=== PATIENT | male | born 1950 | race Caucasian/White ===

== ENCOUNTER 2023-12-30 09:18 | Outpatient (OUT) | payer MEDICARE, BC, SELFPAY ==
--- NOTE | 2023-12-30 09:20 | US_ITS ---
The [address] [address] Patient Name: LALA DAVIS MRN: [id number] date: 1950 Sex: M Assigned Patient Location: Current Patient Location: US Accession/Order Number: [id number] Exam Date: 12/30/2023 09:21 Report Date: 12/30/2023 12:21 At the request of: LANDRY PAIGE Procedure: US scrotum EXAMINATION: US scrotum HISTORY: Pain in testicle N50.819 COMPARISON: No relevant comparison available. TECHNIQUE: High-resolution sonographic imaging of the scrotum and contents was performed. FINDINGS: RIGHT: TESTICLE: Homogeneous echotexture. No visible mass. Color Doppler flow is present. Spectral Doppler demonstrates normal arterial waveform and flow, 4/2 cm/s (PSV/EDV). EPIDIDYMIS: 2 small cyst within head of epididymis. OTHER: None. LEFT: TESTICLE: Homogeneous echotexture. No visible mass. Color Doppler flow is present. Spectral Doppler demonstrates arterial waveform and flow, 5/3 cm/s (PSV/EDV), and normal venous flow averaging cm/s. EPIDIDYMIS: Normal size and echogenicity. OTHER: Prominent amount of free, simple appearing fluid within the left scrotum, 6.6 x 3.8 x 2.0 cm. US/US scrotum IMPRESSION: 1. Left hydrocele of uncertain etiology. No increased vascularity of the testicle or epididymis to suggest orchitis or epididymitis. 2. Unremarkable right testicle. Electronically authenticated by: LEWIS PHILIPPE Date: 12/30/2023 12:21
== END 2023-12-30 09:19 | disposition home or self-care (01) ==
LOC: US 09:18
PROVIDERS: PCP Family Medicine; Visit Provider Family Medicine
DX: N50.819 Testicular pain, unspecified (principal); N43.3 Hydrocele, unspecified
CPT/HCPCS: 76870

== ENCOUNTER 2024-01-04 09:54 | Outpatient (REF) | payer MEDICARE, BC, SELFPAY ==
--- OUTSIDE RECORDS SUMMARY | 2024-01-04 10:06 | XMS_ITS | CCD ---
Author Organization [facility] Care Team Providers Care Scientist Electronics Name Role Phone CARIE, COLE Unavailable Unavailable YUAN, CATRACHO Unavailable Unavailable CARIE, COLE Unavailable Unavailable YENNIFER SOSA Unavailable Unavailable RACHITSKAYA, NOEMY Unavailable Unavaila ble RACHITSKAYA, NOEMY Unavailable Unavaila ble RACHITSKAYA, NOEMY Unavailable Unavaila ble YUAN, CATRACHO Unavailable Unavailable RACHITSKAYA, NOEMY Unavailable Unavaila ble YUAN, CATRACHO Unavailable Unavailable YUAN, CATRACHO Unavailable Unavailable YUAN, CATRACHO Unavailable Unavailable YUAN, CATRACHO Unavailable Unavailable YUAN, CATRACHO Unavailable Unavailable YUAN, CATRACHO Unavailable Unavailable YUAN, CATRACHO Unavailable Unavailable YUAN, CATRACHO Unavailable Unavailable YUAN, CATRACHO Unavailable Unavailable YUAN, CATRACHO Unavailable Unavailable YUAN, CATRACHO Unavailable Unavailable Landry Paige Attending Unavailable Grecia, Landry Vilchis Primary Care Unavailable Calixto Smith II Unavailable Landry Paige Unavailable GRECIA, DR ALATORRE Consulting Unavailable GRECIA, DR ALATORRE Primary Care Unavailable GRECIA, DR ALATORRE Admitting Unavailable GRECIA, DR ALATORRE Attending Unavailable GRECIA, DR ALATORRE Admitting Unavailable GRECIA, DR ALATORRE Attending Unavailable GRECIA, DR ALATORRE Consulting Unavailable BROOKLYN, DR ALATORRE V Consulting Unavailable GRECIA, DR ALATORRE Primary Care Unavailable GRCEIA, DR ALATORRE Admitting Unavailable GRECIA, DR ALATORRE Attending Unavailable GRECIA, DR ALATORRE Consulting Unavailable Allergies Allergy Classification Reported Allergen(s) Allergy Type Date of Onset Reaction(s) Facility (16 sources) codeine; Translations: [CODEINE] Drug Allergy [facility] Repository (15 sources) atorvastatin Drug Allergy felt awful 09/03/16 [facility] Other Medications Current Medications Medication Drug Class(es) Dates Sig (Normalized) Sig (Original) diclofenac sodium 0.01 mg/mg topical gel (15 sources) Nonsteroidal Anti-inflammatory Drug Start: 01-27-2022 Voltaren 1 % Apply 1-2 grams to the affected area Externally 4-5 times a day for 30 days Jan, Active ginkgo biloba extract 120 mg oral capsule (15 sources) take 1 capsule by mouth once daily Ginkgo Biloba 120 MG 1 capsule Orally once a day Active glucosamine sulfate 1000 mg oral capsule (15 sources) take 1 capsule by mouth every twenty-four hours Glucosamine Sulfate 1000 MG 1 capsule Orally once a day for 30 day(s) Active take 1 capsule by mouth once lisa ly Glucosamine Sulfate 1000 MG 1 capsule Orally once a day for 30 day(s) Active lutein 20 mg oral tablet (15 sources) take 1 capsule by mouth once daily Lutein 20 MG 1 capsule with a meal Orally Once a day for 30 day(s) Active Manchurian Ginseng 250 MG (15 sources) take 2 capsules by mouth once daily Manchurian Ginseng 250 MG 2 capsules Orally once a day Active Naproxen (15 sources) Nonsteroidal Anti-inflammatory Drug Naproxen Active Tuscarora 3 1200 MG (15 sources) take 1 capsule by mouth three times daily [place]ora 3 1200 MG 1 capsule Orally Three times a day Active Saw [place] 1000 MG (15 sources) take 1 capsule by mouth once daily Saw [place] 1000 MG 1 capsule Orally once a day Active tadalafil 10 mg oral tablet (11 sources) Phosphodiesterase 5 Inhibitor Start: 04-06-20 Cialis 10 MG 1 tablet Orally 1 hour prior to onset of sexual activity max 1 per 36 hours Mar, Active Vitamin D 400 UNIT (15 sources) take 2 capsules by mouth once daily Vitamin D 400 UNIT 2 capsules Orally Once a day Active Vitamin E 400 UNIT (15 sources) take 1 capsule by mouth once daily Vitamin E 400 UNIT 1 capsule Orally Once a day for 30 day(s) Active Completed/Discontinued Medications Medication Drug Class(es) Dates Sig (Normalized) Sig (Original) amoxicillin 875 mg / clavulanate 125 mg oral tablet (4 sources) Penicillin-class Antibacterial Start: 10-11-2022 take 1 tablet by mouth twice daily at mealtime Amoxicillin-Pot Clavulanate 875-125 MG 1 tablet Orally bid with food for 10 days Oct, Not-Taking Co-Enzyme Q-10 100 MG (15 sources) Start: 11-24-2012 take 2 capsules by mouth once daily Co-Enzyme Q-10 100 MG 2 capsules w/meal Orally Once a day Nov, Not-Taking Start: 11-24-2012 take 2 capsules by m outh once daily Co-Enzyme Q-10 100 MG 2 capsules w/meal Orally Once a day Nov, Active meloxicam 7.5 mg oral tablet (7 sources) Nonsteroidal Anti-inflammatory Drug Start: 04-20-2022 take 1 tablet by mouth every twenty-four hours Meloxicam 7.5 MG 1 tablet Orally Once a day for 30 day(s) Apr, Not-Taking triamcinolone acetonide 40 mg/ml injectable suspension (2 sources) Corticosteroid Start: 11-05-2022 Kenalog-40 Oct, 120 mg Wheat germ oil (15 sources) Wheat Germ Oil Orally Not-Taking Wheat Germ Oil O rally Active Problems Active Problems Problem Classification Problem Date Documented Da te Episodic/Chronic Disorders of lipid metabolism (20 sources) Hyperlipidemia, unspecified; Translations: [Hyperlipidemia] Onset: 11-10-2018 Chronic Genitourinary symptoms and ill-defined conditions (9 sources) Nocturia; Translations: [NOCTURIA] Onset: 04-07-2022 Resolved: 04-13-2022 Episodic Nutritional deficiencies (15 sources) Vitamin D deficiency; Translations: [Vitamin D deficiency, unspecified] Chronic Open wounds of extremities (15 sources) Bilateral traumatic amputation of lower limbs; Translations: [Complete traumatic amputation of right lower leg, level unspecified, initial encounter] Chronic Open wounds of extremities (15 sources) Complete traumatic amputation at level between left hip and knee, subsequent encounter; Translations: [Complete traumatic amputation at level between left hip and knee, subsequent encounter] Chronic Osteoarthritis (20 sources) Osteoarthritis of knee; Translations: [Unilateral primary osteoarthritis, right knee] Onset: 01-13-2022 Resolved: 04-20-2022 Chronic Other bone disease and musculoskeletal deformities (15 sources) History of amputation of left lower limb; Translations: [Acquired absence of left leg above knee] Chronic Other connective tissue disease (15 sources) Finding of limb structure; Translations: [Presence of artificial left leg (complete) (partial)] Chronic Other connective tissue disease (1 source) Presence of artificial left leg (complete) (partial) Onset: 04-06-2022 Resolved: 04-06-2022 Chronic Other gastrointestinal disorders (4 sources) Irritable bowel syndrome; Translations: [Irritable bowel syndrome] Chronic Other gastrointestinal disorders (4 sources) Feces contents abnormal; Translations: [Change in stool] Episodic Other male genital disorders (12 sources) Male erectile dysfunction, unspecified; Translations: [Erectile dysfunction] Onset: 04-06-2022 Resolved: 04-06-2022 Chronic Other nutritional; endocrine; and metabolic disorders (4 sources) Weight loss; Translations: [Weight Loss] Episodic Other screening for suspected conditions (not mental disorders or infectious disease) (6 sources) Encounter for screening for malignant neoplasm of prostate; Translations: [Encounter for screening for malignant neoplasm of colon] Onset: 04-06-2022 Resolved: 04-06-2022 Episodic Other upper respiratory disease (4 sources) Allergic rhinitis; Translations: [Allergic rhinitis, cause unspecified] Chronic Unclassified (1 source) Unknown / UNK(Unknown) Onset: 02-17-2017 Unclassified (4 sources) Presence of left artificial leg; Translations: [Presence of left artificial leg] Past or Other Problems Problem Classification Problem Date Documented Da te Episodic/Chronic Other non-traumatic joint disorders (4 sources) Pain in right knee; Translations: [PAIN IN RIGHT KNEE] Onset: 01-06-2022 Episodic Retinal detachments; defects; vascular occlusion; and retinopathy (1 source) Serous retinal detachment, left eye; Translations: [Serous retinal detachment, left eye] Onset: 02-19-2017 Episodic Results Test Name Value Interpretation Reference Range Facility [facility] BLD IMMUNO SCREENon 09-0 OCCULT BLOOD Negative Normal NEGATIVE [facility] Comment on above: Performed By: #### OBSCRN #### [facility] [address] [address] [address] Anabel Dueñas XR knee RT 4V*on 01-27-2022 XR knee RT 4V* [place] [address] XRay Report Signed Patient: Lala Davis MR#: [id number] : 1950 Acct:[id number] Age/Sex: 71 / M ADM Date: 01/27/22 Loc: [facility] Room: Type: [facility] Attending Dr: Calixto Smith II, MD Copies to: Calixto Smith MD Ordering Provider: Calixto Smith MD Date of Service: 01/27/22 XR/XR knee RT 4V*: Primary osteoarthritis of right knee ([id number]) XR/XR pelvis 1-2V: Primary osteoarthritis of right knee Single view of the pelvis plain film HISTORY:RIGHT knee pain. COMPARISON:None SI joints are maintained. No hip fracture or dislocation is present. No acute bony findings identified. No focal soft tissue abnormality seen. LEFT hip joint space is narrowed. RIGHT hip joint space unremarkable.. Articular surface of the hips preserved. Chronic changes involving the proximal femur on the LEFT noted. XR/XR pelvis 1-2V IMPRESSION:LEFT hip degeneration. Chronic changes involving the proximal portion of the LEFT femoral shaft. Unremarkable RIGHT hip. 4 views, RIGHT knee Advanced medial compartment degeneration. Tricompartmental marginal spurring. No patellar subluxation with sunrise view. No acute bony findings. Mild degenerative subluxation. No soft tissue abnormality. No joint effusion. IMPRESSION: Advanced medial compartment knee degeneration. Impression dictated by: Magnus Motley M.D.01/27/2022 12:45 PM Dictation Location: [place] [address] Transcribed By: [facility] 01/27/22 1245 Dictated By: Magnus Motley DO 01/27/22 1242 Signed By: 01/27/22 1245 Normal [facility] XR knee RT 4V* [facility] [employer] Other XR knee RT 4V* [facility] [employer] Other XR knee RT 4V* [address] [place] [address] [facility] Other XR knee RT 4V* [place] [address] [facility] Other XR knee RT 4V* XRay Report [facility] Other XR knee RT 4V* Signed [facility] Other XR knee RT 4V* Patient: Lala Davis MR#: [id number] [facility] Other XR knee RT 4V* : 1950 Acct:[id number] [facility] Other XR knee RT 4V* Age/Sex: 71 / M ADM Date: 01/27/22 [facility] Other XR knee RT 4V* Loc: [facility] Room: Type: REG CLI No rt [employer] Other XR knee RT 4V* Attending Dr: Calixto Smith II, MD [facility] Other XR knee RT 4V* Copies to: Calixto Smith MD [facility] Other XR knee RT 4V* Ordering Provider: Calixto Smith MD [facility] Other XR knee RT 4V* Date of Service: 01/27/22 [facility] Other XR knee RT 4V* XR/XR knee RT 4V*: Primary osteoarthritis of right knee [facility] Other XR knee RT 4V* ([id number]) XR/XR pelvis 1-2V: Primary osteoarthritis of right knee [facility] Other XR knee RT 4V* Single view of the pelvis plain film [facility] Other XR knee RT 4V* HISTORY:RIGHT knee pain. [employer] Other XR knee RT 4V* COMPARISON:None [facility] Other XR knee RT 4V* SI joints are maintained. [facility] Other XR knee RT 4V* No hip fracture or dislocation is present. [facility] Other XR knee RT 4V* No acute bony findings identified. [facility] Other XR knee RT 4V* No focal soft tissue abnormality seen. [facility] Other XR knee RT 4V* LEFT hip joint space is narrowed. RIGHT hip joint space unremarkable.. Articular surface of the [facility] Other XR knee RT 4V* hips preserved. Chronic changes involving the proximal femur on the LEFT noted. [facility] Other XR knee RT 4V* XR/XR pelvis 1-2V [facility] Other XR knee RT 4V* IMPRESSION:LEFT hip degeneration. Chronic changes involving the proximal portion of the LEFT femoral [facility] Other XR knee RT 4V* shaft. Unremarkable RIGHT hip. [employer] Other XR knee RT 4V* 4 views, RIGHT knee [facility] Other XR knee RT 4V* Advanced medial compartment degeneration. Tricompartmental marginal spurring. No patellar [employer] Other XR knee RT 4V* subluxation with sunrise view. No acute bony findings. Mild degenerative subluxation. No soft tissue [employer] Other XR knee RT 4V* abnormality. No joint effusion. [employer] Other XR knee RT 4V* IMPRESSION: Advanced medial compartment knee degeneration. [employer] Other XR knee RT 4V* Impression dictated by: Magnus Motley M.D.01/27/2022 12:45 PM [employer] Other XR knee RT 4V* Dictation Location: [place] [address] [facility] Other XR knee RT 4V* Transcribed By: ROBERTO 01/27/22 1245 [employer] Other XR knee RT 4V* Dictated By: Magnus Motley DO 01/27/22 1242 [facility] Other XR knee RT 4V* Signed By: [facility] Other XR knee RT 4V* 01/27/22 [address] [facility] [address] CARDIAC SCORINGon 04-0 CT CARDIAC SCORING Patient Name: LALA DAVIS STUDY: CT CARDIAC SCORING; 11/10/2018 3:11 pm INDICATION: Hyperlipidemia, unspecified. COMPARISON: None. ACCESSION NUMBER(S): [id number] ORDERING CLINICIAN: LANDRY PAIGE TECHNIQUE: Using prospective ECG gating, CT scan of the coronary arteries was performed without intravenous contrast. Coronary calcium scoring was performed according to the method of Agatston. FINDINGS: The score and distribution of calcium in the coronary arteries is as follows: LM 0, LAD 0, LCx 0, RCA 0, Total 0 The visualized mid/lower ascending thoracic aorta measures 3.0 cm in diameter. The heart is normal in size. No pericardial effusion is present. No gross evidence of mediastinal or hilar lymphadenopathy or masses is identified. The visualized segments of the lungs are normally expanded. The visualized subdiaphragmatic structures appear intact. IMPRESSION: 1. Coronary artery calcium score of 0*. *Coronary Artery Calcium Gated and Nongated Agatston score Score Risk 0 Very low 1-99 Mildly increased 100-299 Moderately increased >300 Moderate to severely increased Candace et al. JCCT 2016 (http://dx.doi.org/10.1016/j.jcc t.2016.11.003) MORALES 10-Year CHD Risk with Coronary Artery Calcification can be calcuate using link below [email or web address] spx Yohannes et al. JACC 2014 (http://dx.doi.org/10.1016/j.j acc.2015.08.035) Electronically signed by: ONEL PIPER MD Normal [facility] PROGRESSon 11-18-2017 PROGRESS HNO ID: [id number] thor: Catracho Soni: (none)Author Type: PhysicianType: Progress NotesFiled: 11/18/2017 11:47 AMNote Text:Recent subtotal retinal detachment of left eyeCystoid macular edema of left eyeLeft posterior capsular opacificationS/p Pars plana vitrectomy (PPV) left eye with Dr. Villarreal (02/19/17)Great response to Predforte /acular with almost complete resolution ofcystoid macular edemaPreviously with cystoid macular edema after tapering off medsHas a posterior capsular opacity (PCO), vision 20/25Plan:intraocular pressure creeping upTaper Predforte Slowly to twice a dayAdd timolol twice a Julisa am out in January, see Dr. Summers or Dr. King in January then [facility] to [facility] reviewed history and examined the patient. I agree with findings,impressions, and plan.The nature of the patient's eye disease, its relationship to systemichealth, its genetic components, and its prognosis have been explained tothe patient/family.The treatment options/risks/benefits have been discussed.Questions answered.Catracho Quesada MD [facility] PROGRESSon 10-14-2017 PROGRESS HNO ID: [id number] thor: Catracho Soni: (none)Author Type: PhysicianType: Progress NotesFiled: 10/14/2017 10:24 AMNote Text:Recent subtotal retinal detachment of left eyeCystoid macular edema of left eyeLeft posterior capsular opacificationS/p Pars plana vitrectomy (PPV) left eye with Dr. Villarreal (02/19/17)Great response to Predforte /acular with almost complete resolution ofcystoid macular edemacystoid macular edema once off Predforte /acular will need slow taperHas a PCOPlan:Predforte Three times a day , return 1 Maddy reviewed history and examined the patient. I agree with findings,impressions, and plan.The nature of the patient's eye disease, its relationship to systemichealth, its genetic components, and its prognosis have been explained tothe patient/family.The treatment options/risks/benefits have been discussed.Questions answered.Catracho Quesada MD [facility] PROGRESSon 09-16-2017 PROGRESS HNO ID: [id number] thor: Catracho Soni: (none)Author Type: PhysicianType: Progress NotesFiled: 09/16/2017 12:18 PMNote Text:Recent subtotal retinal detachment of left eyeCystoid macular edema of left eye (primary encounter diagnosis)Left posterior capsular opacificationS/p Pars plana vitrectomy (PPV) left eye with Dr. Villarreal (02/19/17)Great response to Predforte /acular with almost complete resolution ofcystoid macular edemaBut now with cystoid macular edema once off Predforte /acularPlan:Restart Predforte four times a day , return 1 Maddy reviewed history and examined the patient. I agree with findings,impressions, and plan.The nature of the patient's eye disease, its relationship to systemichealth, its genetic components, and its prognosis have been explained tothe patient/family.The treatment options/risks/benefits have been discussed.Questions answered.Catracho Quesada MD [facility] 06-17-2017 HOSP Office Visit OPHT (OPHTLN) LARS DAVIS ([id number]) 1950 MDate Time Provider Grqukfhtuu05/10/17 2:15 PM CATRACHO QUESADA During your visit today, we recorded the following information about you:Catracho Quesada MD PHD 06/17/2017 3:01 PM SignedRecent subtotal retinal detachment of left eyeCystoid macular edema of left eyeS/p Pars plana vitrectomy (PPV) left eye with Dr. Villarreal (02/19/17)Great response to Predforte /acular with almost complete resolution of cystoidmacular edemaTaper off PFMonitor IOPI reviewed history and examined the patient. I agree with findings,impressions, and plan.The nature of the patient's eye disease, its relationship to systemic health,its genetic components, and its prognosis have been explained to thepatient/family.The treatment options/risks/benefits have been discussed.Questions answered.Catracho Quesada MDReferring Provider: CATRACHO QUESADA [[id number]]Allergies As of Date: 06/17/2017 Noted Allergy ReactionCODEINE 10/12/2016 5 - IntoleranceDate Reviewed: 06/17/2017Reviewed by: Catracho Quesada - Fully AssessedReason for Visit: Cystoid Macular Edema Follow Up [3589]Visit Diagnoses:Recent subtotal retinal detachment of left eye [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 [H35.352]Order(s):DILATED FUNDUS EXAM [] Order #: [id number]: 1 IOP MEASUREMENT [] Order #: [id number]: 1 OCT MACULA CIRRUS OS (LEFT EYE) [21291210] Order #: [id number]: 1 DILATED FUNDUS EXAM [] Order #: [id number]: 1 FUTURE IOP MEASUREMENT [] Order #: [id number]: 1 FUTURE OCT MACULA CIRRUS OS (LEFT EYE) [21291210] Order #: [id number]: 1 FUTUREPrescriptions as of 06/17/2017 Sig: PREDNISOLONE ACETATE 1 % EYE * Use 1 Drop in the left eye fo* PREDNISOLONE ACETATE 1 % EYE * Use 1 Drop in the left eye th* KETOROLAC 0.5 % EYE DROPS Use 1 Drop in the left eye th* KETOROLAC 0.5 % EYE DROPS Use 1 Drop in the left eye fo* GINSENG 250 MG CAPSULE Take by mouth. COENZYME Q10 100 MG TABLET Take by mouth. MAGNESIUM (OXIDE/AA CHELATE) * Take by mouth. CALCIUM 300 ORAL Take by mouth. OMEGA 3 FISH OIL ORAL Take by mouth. VITAMIN E (DL, ACETATE) 400 U* Take 400 Units by mouth once * GLUCOSAMINE SULFATE 500 MG TA* Take 1 tablet by mouth. MULTI FOR HIM ORAL Take by mouth. MELOXICAM ORAL Take by mouth.Problem List As Of Date 06/17/2017 Noted Resolved Age-related nuclear cataract of both eyes [H25.*INVALID FOR* Cataract, nuclear sclerotic senile [H25.10] INVALID FOR* Nuclear sclerotic cataract of left eye [H25.12] INVALID FOR* S/P cataract extraction and insertion of intrao*INVALID FOR* PVD (posterior vitreous detachment), both eyes *INVALID FOR* After-cataract obscuring vision [H26.499] INVALID FOR*Annotated image of OPHT KEITH FUNDUS PERIPHERY OS last updated by Catracho Quesada on 06/17/2017 2:52 PMEncounter Number: [id number] Status:Closed by SHIN PONCE, CATRACHO PHD on 06/17/17 [facility] PROGRESSon 06-17-2017 PROGRESS HNO ID: [id number] thor: Catracho Soni: (none)Author Type: PhysicianType: Progress NotesFiled: 06/17/2017 3:01 PMNote Text:Recent subtotal retinal detachment of left eyeCystoid macular edema of left eyeS/p Pars plana vitrectomy (PPV) left eye with Dr. Villarreal (02/19/17)Great response to Predforte /acular with almost complete resolution ofcystoid macular edemaTaper off PFMonitor IOPI reviewed history and examined the patient. I agree with findings,impressions, and plan.The nature of the patient's eye disease, its relationship to systemichealth, its genetic components, and its prognosis have been explained tothe patient/family.The treatment options/risks/benefits have been discussed.Questions answered.Catracho Quesada MD [facility] 05-20-2017 HOSP Office Visit OPHT (OPHTLN) [facility]ARS DAVIS [facility][id number][facility] 1950 [facility] Ebapcergux09/13/17 9:45 AM CATRACHO QUESADA During your visit today, we recorded the following information about you:Catracho Quesada MD PHD 05/20/2017 10:40 AM SignedRecent subtotal retinal detachment of left eyeCystoid macular edema of left eyeS/p Pars plana vitrectomy (PPV) left eye with Dr. Villarreal (02/19/17)Great response to Predforte /acular with almost complete resolution of cystoidmacular edemaintraocular pressure high todayTaper to three times a day x 1 week, then twice a day x 1 weekMonitor IOPI reviewed history and examined the patient. I agree with findings,impressions, and plan.The nature of the patient's eye disease, its relationship to systemic health,its genetic components, and its prognosis have been explained to thepatient/family.The treatment options/risks/benefits have been discussed.Questions answered.Catracho Quesada [facility] Provider: CATRACHO QUESADA [[id number]]Allergies As of Date: 05/20/2017 Noted Allergy ReactionCODEINE 10/12/2016 5 - IntoleranceDate Reviewed: 05/20/2017Reviewed by: Tova TenorioOpt-ADolly Barksdale - Fully AssessedReason for Visit: Cystoid Macular Edema Follow Up [3589]Visit Diagnoses:Recent subtotal retinal detachment of left eye [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 [H35.352]Order(s):DILATED FUNDUS EXAM [] Order #: [id number]: 1 IOP MEASUREMENT [] Order #: [id number]: 1 OCT MACULA CIRRUS OS (LEFT EYE) [21291210] Order #: [id number]: 1 prednisoLONE acetate (PRED FORTE, ECONOPRED PLUS) 1 % ophthalmic suspensionUse 1 Drop in the left eye three times daily.Disp: 1 BottleRfl: 2 ketorolac (ACULAR) 0.5 % ophthalmic solutionUse 1 Drop in the left eye three times daily.Disp: 1 BottleRfl: 2 DILATED FUNDUS EXAM [] Order #: [id number]: 1 FUTURE IOP MEASUREMENT [] Order #: [id number]: 1 FUTURE OCT MACULA CIRRUS OS (LEFT EYE) [21291210] Order #: [id number]: 1 FUTUREPrescriptions as of 05/20/2017 Sig: PREDNISOLONE ACETATE 1 % EYE * Use 1 Drop in the left eye fo* PREDNISOLONE ACETATE 1 % EYE * Use 1 Drop in the left eye th* KETOROLAC 0.5 % EYE DROPS Use 1 Drop in the left eye th* KETOROLAC 0.5 % EYE DROPS Use 1 Drop in the left eye fo* GINSENG 250 MG CAPSULE Take by mouth. COENZYME Q10 100 MG TABLET Take by mouth. MAGNESIUM (OXIDE/AA CHELATE) * Take by mouth. CALCIUM 300 ORAL Take by mouth. OMEGA 3 FISH OIL ORAL Take by mouth. VITAMIN E (DL, ACETATE) 400 U* Take 400 Units by mouth once * GLUCOSAMINE SULFATE 500 MG TA* Take 1 tablet by mouth. MULTI FOR HIM ORAL Take by mouth. MELOXICAM ORAL Take by mouth.Problem List As Of Date 05/20/2017 Noted Resolved Age-related nuclear cataract of both eyes [H25.*INVALID FOR* Cataract, nuclear sclerotic senile [H25.10] INVALID FOR* Nuclear sclerotic cataract of left eye [H25.12] INVALID FOR* S/P cataract extraction and insertion of intrao*INVALID FOR* PVD (posterior vitreous detachment), both eyes *INVALID FOR* After-cataract obscuring vision [H26.499] INVALID FOR*Prescriptions ordered this encounter Disp Refills Start End PREDNISOLONE ACETATE 1 % EYE DROPS,S* 1 Jarad* 2 05/20/2017 Class: Print RX Route: LEFT EYE Sig: Use 1 Drop in the left eye three times daily. KETOROLAC 0.5 % EYE DROPS 1 Jarad* 2 05/20/2017 Class: Print RX Route: LEFT EYE Sig: Use 1 Drop in the left eye three times daily.Disposition: Return in 4 weeks (on 06/17/2017).Follow-up and Disposition History RecordedAnnotated image of OPHT KEITH FUNDUS PERIPHERY OS last updated by Catracho Quesada on 05/20/2017 10:23 AMEncounter Number: [id number] Status:Closed by SHIN PONCE, CATRACHO PHD on 05/20/17 [facility] PROGRESSon 05-20-2017 PROGRESS HNO ID: [id number] thor: Catracho Soni: (none)Author Type: PhysicianType: Progress NotesFiled: 05/20/2017 10:40 AMNote Text:Recent subtotal retinal detachment of left eyeCystoid macular edema of left eyeS/p Pars plana vitrectomy (PPV) left eye with Dr. Villarreal (02/19/17)Great response to Predforte /acular with almost complete resolution ofcystoid macular edemaintraocular pressure high todayTaper to three times a day x 1 week, then twice a day x 1 weekMonitor IOPI reviewed history and examined the patient. I agree with findings,impressions, and plan.The nature of the patient's eye disease, its relationship to systemichealth, its genetic components, and its prognosis have been explained tothe patient/family.The treatment options/risks/benefits have been discussed.Questions answered.Catracho Quesada MD [facility] HOSPon 04-15-2017 HOSP Office Visit OPHT (OPHTLN) LARS DAVIS ([id number]) 1950 MDate Time Provider Department04/15/17 10:15 AM CATRACHO QUESADA During your visit today, we recorded the following information about you:Catracho Quesada MD PHD 04/15/2017 10:58 AM SignedRecent subtotal retinal detachment of left eyeCystoid macular edema of left eye (primary encounter diagnosis)S/p Pars plana vitrectomy (PPV) left eye with Dr. Villarreal (02/19/17)Retina attached but worsening cystoid macular edema left eye with SRFRestart Predforte And add acular four times a day OSI reviewed history and examined the patient. I agree with findings,impressions, and plan.The nature of the patient's eye disease, its relationship to systemic health,its genetic components, and its prognosis have been explained to thepatient/family.The treatment options/risks/benefits have been discussed.Questions answered.Catracho Quesada MDReferring Provider: CATRACHO QUESADA [[id number]]Allergies As of Date: 04/15/2017 Noted Allergy ReactionCODEINE 10/12/2016 5 - IntoleranceDate Reviewed: 04/15/2017Reviewed by: Catracho Quesada - Fully AssessedReason for Visit: Recent subtotal retinal detachment [Other] Cmt: Left EyePrimary Visit Diagnosis:Cystoid macular edema of left eye [H35.352] Other Visit Diagnosis:Recent subtotal retinal detachment of left eye [H33.052]Order(s):DILATED FUNDUS EXAM [] Order #: [id number]: 1 IOP MEASUREMENT [] Order #: [id number]: 1 OCT MACULA CIRRUS OS (LEFT EYE) [21291210] Order #: [id number]: 1 ketorolac (ACULAR) 0.5 % ophthalmic solutionUse 1 Drop in the left eye four times daily.Disp: 1 BottleRfl: 1 DILATED FUNDUS EXAM [] Order #: [id number]: 1 FUTURE IOP MEASUREMENT [] Order #: [id number]: 1 FUTURE OCT MACULA CIRRUS OS (LEFT EYE) [0763314] Order #: [id number]: 1 FUTUREPrescriptions as of 04/15/2017 Sig: GINSENG 250 MG CAPSULE Take by mouth. COENZYME Q10 100 MG TABLET Take by mouth. MAGNESIUM (OXIDE/AA CHELATE) * Take by mouth. CALCIUM 300 ORAL Take by mouth. OMEGA 3 FISH OIL ORAL Take by mouth. VITAMIN E (DL, ACETATE) 400 U* Take 400 Units by mouth once * GLUCOSAMINE SULFATE 500 MG TA* Take 1 tablet by mouth. MULTI FOR HIM ORAL Take by mouth. MELOXICAM ORAL Take by mouth. KETOROLAC 0.5 % EYE DROPS Use 1 Drop in the left eye fo*Problem List As Of Date 04/15/2017 Noted Resolved Age-related nuclear cataract of both eyes [H25.*INVALID FOR* Cataract, nuclear sclerotic senile [H25.10] INVALID FOR* Nuclear sclerotic cataract of left eye [H25.12] INVALID FOR* S/P cataract extraction and insertion of intrao*INVALID FOR* PVD (posterior vitreous detachment), both eyes *INVALID FOR* After-cataract obscuring vision [H26.499] INVALID FOR*Prescriptions ordered this encounter Disp Refills Start End KETOROLAC 0.5 % EYE DROPS 1 Jarad* 1 04/15/2017 Route: LEFT EYE Sig: Use 1 Drop in the left eye four times daily.Medications Discontinued During This Encounter erythromycin ophthalmic ointment 0 02/19/2017 04/15/2017 Class: Med Update Route: LEFT EYE Sig: Use 1 application in the left eye daily at bedtime. Apply 1/2 inch ribbon per application Disc: Discontinued by Patient erythromycin ophthalmic ointment 1 Tu* 0 03/04/2017 04/15/2017 Route: LEFT EYE Sig: Use 1 application in the left eye daily at bedtime. Disc: Discontinued by Patient prednisoLONE acetate (PRED FORTE, EC* 0 02/19/2017 04/15/2017 Class: Med Update Route: LEFT EYE Sig: Use 1 Drop in the left eye four times daily. Disc: Course of therapy completed prednisoLONE acetate (PRED FORTE, EC* 1 Jarad* 0 03/12/2017 04/15/2017 Route: LEFT EYE Sig: Use 1 Drop in the left eye once daily. Follow taper directions from your physician. Disc: Course of therapy completed ciprofloxacin HCl (CILOXAN) 0.3 % op* 0 02/19/2017 04/15/2017 Class: Med Update Route: LEFT EYE Sig: Use 1 Drop in the left eye four times daily. Disc: Course of therapy completedDisposition: Return in 4 weeks (on 05/13/2017), or if symptoms worsen or fail to improve.Follow-up and Disposition History RecordedAnnotated image of OPHT KEITH FUNDUS PERIPHERY OS last updated by Catracho Quesada on 04/15/2017 10:47 AMEncounter Number: [id number] Status:Closed by CATRACHO QUESADA MD PHD on 04/15/17 [facility] PROGRESSon 04-15-2017 PROGRESS HNO ID: [id number] thor: Catracho Soni: (none)Author Type: PhysicianType: Progress NotesFiled: 04/15/2017 10:58 AMNote Text:Recent subtotal retinal detachment of left eyeCystoid macular edema of left eye (primary encounter diagnosis)S/p Pars plana vitrectomy (PPV) left eye with Dr. Villarreal (02/19/17)Retina attached but worsening cystoid macular edema left eye with SRFRestart Predforte And add acular four times a day OSI reviewed history and examined the patient. I agree with findings,impressions, and plan.The nature of the patient's eye disease, its relationship to systemichealth, its genetic components, and its prognosis have been explained tothe patient/family.The treatment options/risks/benefits have been discussed.Questions answered.Catracho Quesada MD [facility] HOSPon 03-18-2017 HOSP Office Visit OPHT (OPHTLN) LARS DAVIS ([id number]) 1950 MDate Time Provider Department03/18/17 10:45 AM CATRACHO QUESADA During your visit today, we recorded the following information about you:Catracho Quesada MD PHD 03/18/2017 12:31 PM SignedRecent subtotal retinal detachment of left eye (primary encounter diagnosis)Pco (posterior capsular opacification), leftS/p Pars plana vitrectomy (PPV) left eye with Dr. Vlilarreal (02/19/17)Retina attachedTaper off PredforteContinue ointment at night and aggressive lubricationRefraction next visit pleaseI reviewed history and examined the patient. I agree with findings,impressions, and plan.The nature of the patient's eye disease, its relationship to systemic health,its genetic components, and its prognosis have been explained to thepatient/family.The treatment options/risks/benefits have been discussed.Questions answered.Catracho Quesada MDReferring Provider: NOEMY VILLARREAL V [[id number]]Allergies As of Date: 03/18/2017 Noted Allergy ReactionCODEINE 10/12/2016 5 - IntoleranceDate Reviewed: 03/18/2017Reviewed by: Luisito Segundo (Oa) - Fully AssessedReason for Visit: Rhegmatogenous Retinal Detachment Follow Up [3420]Primary Visit Diagnosis:Recent subtotal retinal detachment of left eye [H33.052] Other Visit Diagnosis:PCO (posterior capsular opacification), left [H26.492]Order(s):DILATED FUNDUS EXAM [] Order #: [id number]: 1 FUTURE IOP MEASUREMENT [] Order #: [id number]: 1 FUTURE DILATED FUNDUS EXAM [] Order #: [id number]: 1 IOP MEASUREMENT [] Order #: [id number]: 1 DILATED FUNDUS EXAM [] Order #: [id number]: 1 FUTURE IOP MEASUREMENT [] Order #: [id number]: 1 FUTURE OCT MACULA CIRRUS OS (LEFT EYE) [21291210] Order #: [id number]: 1 FUTUREPrescriptions as of 03/18/2017 Sig: PREDNISOLONE ACETATE 1 % EYE * Use 1 Drop in the left eye on* ERYTHROMYCIN 5 MG/GRAM (0.5 %* Use 1 application in the left* ERYTHROMYCIN 5 MG/GRAM (0.5 %* Use 1 application in the left* GINSENG 250 MG CAPSULE Take by mouth. COENZYME Q10 100 MG TABLET Take by mouth. MAGNESIUM (OXIDE/AA CHELATE) * Take by mouth. CALCIUM 300 ORAL Take by mouth. OMEGA 3 FISH OIL ORAL Take by mouth. VITAMIN E (DL, ACETATE) 400 U* Take 400 Units by mouth once * GLUCOSAMINE SULFATE 500 MG TA* Take 1 tablet by mouth. MULTI FOR HIM ORAL Take by mouth. MELOXICAM ORAL Take by mouth. CIPROFLOXACIN 0.3 % EYE DROPS Use 1 Drop in the left eye fo* PREDNISOLONE ACETATE 1 % EYE * Use 1 Drop in the left eye fo*Problem List As Of Date 03/18/2017 Noted Resolved Age-related nuclear cataract of both eyes [H25.*INVALID FOR* Cataract, nuclear sclerotic senile [H25.10] INVALID FOR* Nuclear sclerotic cataract of left eye [H25.12] INVALID FOR* S/P cataract extraction and insertion of intrao*INVALID FOR* PVD (posterior vitreous detachment), both eyes *INVALID FOR* After-cataract obscuring vision [H26.499] INVALID FOR*Disposition: Return in 4 weeks (on 04/15/2017).Follow-up and Disposition History RecordedAnnotated image of OPHT KEITH FUNDUS PERIPHERY OS last updated by Catracho Quesada on 03/18/2017 12:24 PMEncounter Number: [id number] Status:Closed by SHIN PONCE, CATRACHO PHD on 03/18/17 [facility] PROGRESSon 03-18-2017 PROGRESS HNO ID: [id number] thor: Catracho Soni: (none)Author Type: PhysicianType: Progress NotesFiled: 03/18/2017 12:31 PMNote Text:Recent subtotal retinal detachment of left eye (primary encounterdiagnosis)Pco (posterior capsular opacification), leftS/p Pars plana vitrectomy (PPV) left eye with Dr. Villarreal (02/19/17)Retina attachedTaper off PredforteContinue ointment at night and aggressive lubricationRefraction next visit pleaseI reviewed history and examined the patient. I agree with findings,impressions, and plan.The nature of the patient's eye disease, its relationship to systemichealth, its genetic components, and its prognosis have been explained tothe patient/family.The treatment options/risks/benefits have been discussed.Questions answered.Catracho Quesada MD [facility] OBSOLETEon 03-12-2017 OBSOLETE Refill (OPHTMN) LARS DAVIS ([id number]) 1950 MDate Time Provider Department03/12/17 CALIXTO HANNAH (RES) OPHHUBERN During your visit today, we recorded the following information about you:Calixto Hannah MD, PhD 03/12/2017 10:33 AM SignedAsked for refill of prednisolone. Will refill one bottle. Counseled to followtaper directions given at last office visit.Allergies As of Date: 03/12/2017 Noted Allergy ReactionCODEINE 10/12/2016 5 - IntoleranceDate Reviewed: 02/25/2017Reviewed by: Santy Caputo Fully AssessedReason for Visit: Refill Request [94]Order(s):prednisoLONE acetate (PRED FORTE, ECONOPRED PLUS) 1 % ophthalmic suspensionUse 1 Drop in the left eye once daily. Follow taper directions from your physician.Disp: 1 BottleRfl: 0Prescriptions as of 03/12/2017 Sig: PREDNISOLONE ACETATE 1 % EYE * Use 1 Drop in the left eye on* ERYTHROMYCIN 5 MG/GRAM (0.5 %* Use 1 application in the left* CIPROFLOXACIN 0.3 % EYE DROPS Use 1 Drop in the left eye fo* ERYTHROMYCIN 5 MG/GRAM (0.5 %* Use 1 application in the left* PREDNISOLONE ACETATE 1 % EYE * Use 1 Drop in the left eye fo* GINSENG 250 MG CAPSULE Take by mouth. COENZYME Q10 100 MG TABLET Take by mouth. MAGNESIUM (OXIDE/AA CHELATE) * Take by mouth. CALCIUM 300 ORAL Take by mouth. OMEGA 3 FISH OIL ORAL Take by mouth. VITAMIN E (DL, ACETATE) 400 U* Take 400 Units by mouth once * GLUCOSAMINE SULFATE 500 MG TA* Take 1 tablet by mouth. MULTI FOR HIM ORAL Take by mouth. MELOXICAM ORAL Take by mouth.Problem List As Of Date 03/12/2017 Noted Resolved Age-related nuclear cataract of both eyes [H25.*INVALID FOR* Cataract, nuclear sclerotic senile [H25.10] INVALID FOR* Nuclear sclerotic cataract of left eye [H25.12] INVALID FOR* S/P cataract extraction and insertion of intrao*INVALID FOR* PVD (posterior vitreous detachment), both eyes *INVALID FOR* After-cataract obscuring vision [H26.499] INVALID FOR*Prescriptions ordered this encounter Disp Refills Start End PREDNISOLONE ACETATE 1 % EYE DROPS,S* 1 Jarad* 0 03/12/2017 Route: LEFT EYE Sig: Use 1 Drop in the left eye once daily. Follow taper directions from your physician. Status:Closed by CALIXTO HANNAH on 03/12/17 [facility] OBSOLETEon 03-04-2017 OBSOLETE Refill (OPHTMN) LARS DAVIS ([id number]) 1950 MDate Time Provider Department03/04/17 NOEMY VILLARREAL During your visit today, we recorded the following information about you:Allergies As of Date: 03/04/2017 Noted Allergy ReactionCODEINE 10/12/2016 5 - IntoleranceDate Reviewed: 02/25/2017Reviewed by: Santy Caputo Fully AssessedReason for Visit: Refill Request [94]Order(s):erythromycin ophthalmic ointmentUse 1 application in the left eye daily at bedtime.Disp: 1 TubeRfl: 0Prescriptions as of 03/04/2017 Sig: ERYTHROMYCIN 5 MG/GRAM (0.5 %* Use 1 application in the left* CIPROFLOXACIN 0.3 % EYE DROPS Use 1 Drop in the left eye fo* ERYTHROMYCIN 5 MG/GRAM (0.5 %* Use 1 application in the left* PREDNISOLONE ACETATE 1 % EYE * Use 1 Drop in the left eye fo* GINSENG 250 MG CAPSULE Take by mouth. COENZYME Q10 100 MG TABLET Take by mouth. MAGNESIUM (OXIDE/AA CHELATE) * Take by mouth. CALCIUM 300 ORAL Take by mouth. OMEGA 3 FISH OIL ORAL Take by mouth. VITAMIN E (DL, ACETATE) 400 U* Take 400 Units by mouth once * GLUCOSAMINE SULFATE 500 MG TA* Take 1 tablet by mouth. MULTI FOR HIM ORAL Take by mouth. MELOXICAM ORAL Take by mouth.Problem List As Of Date 03/04/2017 Noted Resolved Age-related nuclear cataract of both eyes [H25.*INVALID FOR* Cataract, nuclear sclerotic senile [H25.10] INVALID FOR* Nuclear sclerotic cataract of left eye [H25.12] INVALID FOR* S/P cataract extraction and insertion of intrao*INVALID FOR* PVD (posterior vitreous detachment), both eyes *INVALID FOR* After-cataract obscuring vision [H26.499] INVALID FOR*Prescriptions ordered this encounter Disp Refills Start End ERYTHROMYCIN 5 MG/GRAM (0.5 %) EYE O* 1 Tu* 0 03/04/2017 Route: LEFT EYE Sig: Use 1 application in the left eye daily at bedtime. Status:Closed by PHIL PONCE, NOEMY [place] on 03/04/17 [facility] HOSP 02-25-2017 HOSP Office Visit OPHT (OPHTMN) LARS DAVIS ([id number]) 1950 MDate Time Provider Department02/25/17 11:00 AM NOEMY VILLARREAL V OPHTMN During your visit today, we recorded the following information about you:Noemy Villarreal MD 02/25/2017 11:50 AM SignedRhegmatogenous retinal detachment, left eye-pow 1 s/p PPV/EL/20%SF6 02/19/17- Doing well, retina attached, no fluid - Post operative drops, instructions, and positioning right side down reviewed- start PF taper 3-2-1 weekly taper; d/c cipro; d/c cycloPseudophakia both eyes - stable, observeI have confirmed and edited as necessary the relevant ophthalmic history, ROS,and the neuro exam findings as obtained by others. I have seen and examinedLala Davis.I have discussed the case and the management of this patient's care with theResident/Fellow, if applicable. I also have reviewed and agree with theassessment and plan as stated above and agree with all of its relevantcomponents.Lili Caputo MD 02/25/2017 11:48 AM Addendum02/20/2017Your instructions/restrictions until Dr. Villarreal sees you next are asfollows:-No heavy lifting-No bending over-No strenuous activity-No rubbing the eye-Avoid running water into the face-Maintain right side down position when sleeping-You must wear the metal eye shield at night over the operative eye. During theday you can chose to wear the shield, glasses or sunglasses, to protect theeye.-In the left eye that had surgery, use:1. PredForte (PINK) 1 drop 4 times a day for 1 week then, 1 drop 3 times a dayfor a week then, 1 drop 2 times a day for a week then, 1 drop once a day for aweek2. Ciprofloxacin (MORAN) STOP tomorrow . Cyclopentolate (RED) STOP tomorrow . Ointment 1 strip at night-If you have pain, you can take Extra-strength (500 mg) Tylenol -- 2 tablets(or gel tabs) every six hours as needed, not to exceed 6 tablets in 24 hoursunless you have an allergy to tylenol. If Tylenol doesn't help to relieve yourpain, you need to call [phone] (if during nonbusiness hours ask to speakwith the boot and saddle repair person [place] machine operator [phone]).-If you notice a sudden decrease in your vision or severe increase in pain,please call [phone] (if during nonbusiness hours ask to speak with the oncall [place] machine operator [phone]).-Please contact Dr. Villarreal's office with any questions or concerns [phone].Referring Provider: SELF [[id number]]Allergies As of Date: 02/25/2017 Noted Allergy ReactionCODEINE 10/12/2016 5 - IntoleranceDate Reviewed: 02/25/2017Reviewed by: Noemy Villarreal V - Fully AssessedReason for Visit: Rhegmatogenous retinal detachment of left eye [Other]Primary Visit Diagnosis:Rhegmatogenous retinal detachment of left eye [H33.002]Order(s):IOP MEASUREMENT [] Order #: [id number]: 1 FUTURE DILATED FUNDUS EXAM [] Order #: [id number]: 1 FUTURE OCT MACULA CIRRUS OS (LEFT EYE) [21291210] Order #: [id number]: 1 FUTUREPrescriptions as of 02/25/2017 Sig: CIPROFLOXACIN 0.3 % EYE DROPS Use 1 Drop in the left eye fo* ERYTHROMYCIN 5 MG/GRAM (0.5 %* Use 1 application in the left* PREDNISOLONE ACETATE 1 % EYE * Use 1 Drop in the left eye fo* GINSENG 250 MG CAPSULE Take by mouth. COENZYME Q10 100 MG TABLET Take by mouth. MAGNESIUM (OXIDE/AA CHELATE) * Take by mouth. CALCIUM 300 ORAL Take by mouth. OMEGA 3 FISH OIL ORAL Take by mouth. VITAMIN E (DL, ACETATE) 400 U* Take 400 Units by mouth once * GLUCOSAMINE SULFATE 500 MG TA* Take 1 tablet by mouth. MULTI FOR HIM ORAL Take by mouth. MELOXICAM ORAL Take by mouth.Problem List As Of Date 02/25/2017 Noted Resolved Age-related nuclear cataract of both eyes [H25.*INVALID FOR* Cataract, nuclear sclerotic senile [H25.10] INVALID FOR* Nuclear sclerotic cataract of left eye [H25.12] INVALID FOR* S/P cataract extraction and insertion of intrao*INVALID FOR* PVD (posterior vitreous detachment), both eyes *INVALID FOR* After-cataract obscuring vision [H26.499] INVALID FOR* Other instructions from your clinician: 02/20/2017 Your instructions/restrictions until Dr. Villarreal sees you next are as follows: -No heavy lifting -No bending over -No strenuous activity -No rubbing the eye -Avoid running water into the face -Maintain right side down position when sleeping -You must wear the metal eye shield at night over the operative eye. During the day you can chose to wear the shield, glasses or sunglasses, to protect the eye. -In the left eye that had surgery, use: 1. PredForte (PINK) 1 drop 4 times a day for 1 week then, 1 drop 3 times a day for a week then, 1 drop 2 times a day for a week then, 1 drop once a day for a week 2. Ciprofloxacin (MORAN) STOP tomorrow 02/26/17 3. Cyclopentolate (RED) STOP tomorrow 02/26/17 4. Ointment 1 strip at night -If you have pain, you can take Extra-strength (500 mg) Tylenol -- 2 tablets (or gel tabs) every six hours as needed, not to exceed 6 tablets in 24 hours unless you have an allergy to tylenol. If Tylenol doesn't help to relieve your pain, you need to call [phone] (if during nonbusiness hours ask to speak with the boot and saddle repair person [place] machine operator [phone]). -If you notice a sudden decrease in your vision or severe increase in pain, please call [phone] (if during nonbusiness hours ask to speak with the boot and saddle repair person [place] machine operator [phone]). -Please contact Dr. Villarreal's office with any questions or concerns at [phone].Disposition: Return 03/18/17 with Catracho Quesada in [place].Follow-up and Disposition History RecordedAnnotated image of OPHT KEITH FUNDUS PERIPHERY OS last updated by Dylan Wilkins (Fel) on 02/25/2017 11:26 AMEncounter Number: [id number] Status:Closed by PHIL PONCE, NOEMY [place] on 02/25/17 [facility] PROGRESSon 02-25-2017 PROGRESS HNO ID: [id number] thor: DENTON Caputoervice: (none)Author Type: PhysicianType: Progress NotesFiled: 02/25/2017 11:50 AMNote Text:Rhegmatogenous retinal detachment, left eye-pow 1 s/p PPV/EL/20%SF6 02/19/17- Doing well, retina attached, no fluid - Post operative drops, instructions, and positioning right side downreviewed- start PF taper 3-2-1 weekly taper; d/c cipro; d/c cycloPseudophakia both eyes - stable, observeI have confirmed and edited as necessary the relevant ophthalmic history,ROS, and the neuro exam findings as obtained by others. I have seen andexamined Lala Davis.I have discussed the case and the management of this patient's care withthe Resident/Fellow, if applicable. I also have reviewed and agree withthe assessment and plan as stated above and agree with all of its relevantcomponents.Noemy Villarreal MD [facility] PROGRESSon 02-24-2017 PROGRESS HNO ID: [id number] thor: Karishma Agrawalice: (none)Author Type: PhysicianType: Progress NotesFiled: 02/24/2017 12:28 PMNote Text:ASSESSMENT / PLAN:1. 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 PVD (posterior vitreous detachment), both eyes - ICD9: 379.21, ICD10:H43.8133. S/P cataract extraction and insertion of intraocular lens, right -ICD9: V45.61, V43.1, ICD10: Z98.41, Z96.14. S/P cataract extraction and insertion of intraocular lens, left - ICD9:V45.61, V43.1, ICD10: Z98.42, Z96.15. After-cataract obscuring vision, left - ICD9: 366.53, ICD10: H26.492 -Likely to require YAG after #1 addressedAimelvin DARNELL MDThe nature of the patient's eye disease, its relationship to systemichealth, its genetic components, and its prognosis have been explained tothe patient/family. The treatment options/risks/benefits have beendiscussed. Questions answered.The documentation recorded by the scribe accurately reflects the service Ipersonally performed and the decisions made by me. I have confirmed andedited as necessary the relevant ophthalmic history, ROS, and the examfindings as obtained by others. I have seen and examined Lala Vilchis Marianela. Slicklso have reviewed and agree with the assessment and plan as stated aboveand agree with all of its relevant components.Cole DARNELL MDly 2016 12:25 PM Normal [facility] 02-20-2017 HOSP Office Visit OPHT (OPHTMN) [facility][id number][facility] 1950 [facility] NOEMY VILLARREAL V OPHTMN During your visit today, we recorded the following information about you:Noemy Villarreal MD 02/20/2017 11:10 AM SignedRhegmatogenous retinal detachment, left eye-pod 1 s/p PPV/EL/20%SF6 02/19/17- Doing well, retina attached, no fluid - Post operative drops, instructions, and positioning right side down reviewedPseudophakia both eyes- stable, observeI have confirmed and edited as necessary the relevant ophthalmic history, ROS,and the neuro exam findings as obtained by others. I have seen and examinedthis patient.I have discussed the case and the management of this patient's care with theResident/Fellow, if applicable. I also have reviewed and agree with theassessment and plan as stated above and agree with all of its relevantcomponents.Troy Kang MD 02/20/2017 10:53 AM Addendum02/20/2017Your instructions/restrictions until Dr. Villarreal sees you next are asfollows:-No heavy lifting-No bending over-No strenuous activity-No rubbing the eye-Avoid running water into the face-Maintain right side down position when sleeping, during the day alternate facedown and right side down-You must wear the metal eye shield at night over the operative eye. During theday you can chose to wear the shield, glasses or sunglasses, to protect theeye.-In the left eye that had surgery, use:1. PredForte (PINK) 1 drop 4 times a day2. Ciprofloxacin (MORAN) 1 drop 4 times a day3. Cyclopentolate (RED) 1 drop 2 times a day4. Ointment 1 strip at night-If you have pain, you can take Extra-strength (500 mg) Tylenol -- 2 tablets(or gel tabs) every six hours as needed, not to exceed 6 tablets in 24 hoursunless you have an allergy to tylenol. If Tylenol doesn't help to relieve yourpain, you need to call [phone] (if during nonbusiness hours ask to speakwith the boot and saddle repair person [place] machine operator [phone]).-If you notice a sudden decrease in your vision or severe increase in pain,please call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
[2024-01-04 15:44] LABS: Internal Control Within Normal Limits; Occult Blood Negative
== END 2024-01-04 09:55 | disposition home or self-care (01) ==
LOC: LAB 09:54
PROVIDERS: PCP Family Medicine; Visit Provider Family Medicine
DX: Z12.11 Encounter for screening for malignant neoplasm of colon (principal)
CPT/HCPCS: G0328

== ENCOUNTER 2024-01-17 09:24 | Outpatient (OUT) | payer MEDICARE, BC, SELFPAY ==
--- OUTSIDE RECORDS SUMMARY | 2024-01-17 09:38 | XMS_ITS ---
Patient Summarization (C-CDA 2.1 CCD) Created on: January 17, 2024 LALA DAVIS : 1950 Sex: Male Author Organization Sample organization Care Team Providers Care Landmen Name Role Phone CARIE, COLE Unavailable Unavailable [...] Primary Care Unavailable Calixto Smith II Unavailable [phone] Landry Paige Unavailable GRECIA, DR ALATORRE Consulting Unavailable GRECIA, DR ALATORRE Primary Care Unavailable GRECIA, DR ALATORRE Admitting Unavailable GRECIA, DR ALATORRE Attending Unavailable GRECIA, DR ALATORRE Admitting Unavailable GRECIA, DR ALATORRE Attending Unavailable GRECIA, DR ALATORRE Consulting Unavailable STAR, DR LANDRY Madera Consulting Unavailable GRECIA, DR ALATORRE Primary Care Unavailable GRECIA, DR ALATORRE Admitting Unavailable GRECIA, DR ALATORRE Attending Unavailable GRECIA, DR ALATORRE Consulting Unavailable Allergies Allergy Classification Reported Allergen(s) Allergy Type Date of Onset Reaction(s) Facility (16 sources) codeine; Translations: [CODEINE] Drug Allergy [facility] Repository (15 sources) atorvastatin Drug Allergy felt awful 09/03/16 [facility] Other Encounters Encounter Date Encounter Type Care Provider Facility Start: 10-17-2023 End: 10-17-2023 ambulatory Not Available Start: 02-04-2023 End: 02-04-2023 ambulatory Calixto Luis II Other [facility] Other Start: 02-04-2023 Office outpatient visit 15 minutes Calixto Marfa II [facility] Start: 11-05-2022 End: 11-05-2022 ambulatory Calixto Luis II Other [facility] Other Start: 11-05-2022 Office outpatient visit 25 minutes Calixto Marfa II [facility] Start: 10-28-2022 End: 10-28-2022 ambulatory Calixto Marfa II Other [facility] Other Start: 10-28-2022 Telephone encounter Calixto Marfa II [facility] Start: 10-11-2022 End: 10-11-2022 ambulatory Landry Paige Other [facility] Other Start: 10-11-2022 Telephone encounter Landry Paige [facility] Start: 08-19-2022 End: 08-19-2022 ambulatory Calixto Luis II Other [facility] Other Start: 08-19-2022 Telephone encounter Calixto Luis II [facility] Start: 07-07-2022 End: 07-07-2022 ambulatory Calixto Marfa II Other [facility] Other Start: 07-07-2022 Telephone encounter Calixto Luis II [facility] Start: 04-20-2022 End: 04-20-2022 ambulatory Calixto Luis II Other [facility] Other Start: 04-20-2022 Telephone encounter Calixto Marfa II [facility] Start: 04-13-2022 Telephone encounter Landry Paige [facility] Start: 04-13-2022 End: 04-13-[address] LANDRY PAIGE [facility] Start: 04-07-2022 Telephone encounter Landry Paige [facility] Start: 04-07-2022 End: 04-08-[address] LANDRY PAIGE [facility] Start: 04-06-2022 End: 04-06-2022 ambulatory Landry Paige Other [facility] Other Start: 04-06-2022 Office outpatient visit 15 minutes Landry Paige [facility] Start: 03-26-2022 End: 03-26-2022 ambulatory Landry Paige Other [facility] Other Start: 03-26-2022 Telephone encounter Landry Paige [facility] Start: 01-29-2022 End: 01-29-2022 ambulatory Calixto Marfa II Other [facility] Other Start: 01-29-2022 Telephone encounter Calixto Marfa II [facility] Start: 01-27-2022 End: 01-27-2022 ambulatory Calixto Marfa II Other [facility] Other Start: 01-27-2022 Office outpatient ne w 45 minutes Calixto Luis II [facility] Start: 01-06-2022 End: 01-07-[address] LANDRY PAIGE Facility: Start: 11-10-2018 Patient encounter procedure Landry Paige Facility:[facility] Start: 11-18-2017 End: 11-21-2017 Ambulatory CATRACHO QUESADA [facility] Start: 10-14-2017 End: 10-17-2017 Ambulatory CATRACHO QUESADA [facility] Start: 09-16-2017 End: 09-26-2017 Ambulatory CATRACHO QUESADA [facility] Start: 06-17-2017 End: 06-21-2017 Ambulatory CATRACHO QUESADA [facility] Start: 05-20-2017 End: 05-26-2017 Ambulatory CATRACHO QUESADA [facility] Start: 04-15-2017 End: 04-19-2017 Ambulatory CATRACHO QUESADA [facility] Start: 03-18-2017 End: 03-18-2017 Ambulatory CATRACHO QUESADA [facility] Start: 02-25-2017 End: 02-25-2017 Ambulatory NOEMY VILLARREAL [facility] Start: 02-19-2017 End: 02-19-2017 Ambulatory NOEMY VILLARREAL [facility] Start: 02-18-2017 Ambulatory YENNIFER SOSA [facility] Start: 02-18-2017 End: 02-22-2017 Ambulatory CATRACHO QUESADA [facility] Start: 02-17-2017 End: 02-17-2017 Ambulatory COLE DARNELL [facility] Medications Current Medications Medication Drug Class(es) Dates [...] (15 sources) Nonsteroidal Anti-inflammatory Drug Naproxen Active Frontier 3 1200 MG (15 sources) take 1 capsule by mouth three times daily Frontier 3 1200 MG 1 capsule Orally Three times a day Active Saw Trimble 1000 MG (15 sources) take 1 capsule by mouth once daily Saw Trimble 1000 MG 1 capsule Orally once a [...] Germ Oil Orally Not-Taking Wheat Germ Oil Michele odonnell Active Payers Date Payer Category Payer [facility] [id number] 1958 Medicare [id number] 2.1 [id number] 1950 Unknown [id number] 2.16. [id number] 1950 Unknown [id number] 2.16.84 [id number] 1950 Unknown [id number] 2.16.84 [id number] 1950 Unknown [id number] 2.16.84 [id number] 1950 Unknown [id number] 2.16.84 [id number] Unknown [id number] Problems Active Problems Problem Classification Problem Date [...] retinal detachment, left eye] Onset: 02-19-2017 Episodic Procedures Date Procedure Procedure Detail Performing Clinician Start: 04-07-[address] LANDRY PAIGE Comment on above: Performed By: #### P SAD #### [facility] [address] [address] [address] Anabel Dueñas Results Test Name Value Interpretation Reference Range Facility [facility] BLD IMMUNO SCREENon 09-0 OCCULT BLOOD Negative Normal NEGATIVE [facility] Comment on above: Performed By: #### OBSCRN #### [facility] [address] [address] [address] Anabel Dueñas XR knee RT 4V*on 01-27-2022 XR knee RT 4V* [facility] [place] [address] XRay Report Signed Patient: Lala Davis MR#: [id number] : 1950 Acct:[id number] Age/Sex: 71 / M ADM Date: 01/27/22 Loc: [facility] Room: Type: [facility] Attending Dr: Calixto Smith II, MD Copies to: Calixto Smith MD Ordering Provider: Calixto Smith MD Date of Service: 01/27/22 XR/XR knee RT 4V*: Primary osteoarthritis of right knee ([id number]) XR/XR pelvis 1-2V: Primary osteoarthritis of right [...] Magnus Motley M.D.01/27/2022 12:45 PM Dictation Location: [place] [address] Transcribed By: [facility] 01/27/22 1245 Dictated By: Magnus Motley DO 01/27/22 1242 Signed By: 01/27/22 1245 Normal [facility] XR knee RT 4V* [facility] [employer] Other XR knee RT 4V* [facility] [place] [facility] Other XR knee RT 4V* [address] [place] [address] [facility] Other XR knee RT 4V* [place] [address] [facility] Other XR knee RT 4V* XRay Report [facility] Other XR knee RT 4V* Signed [facility] Other XR knee RT 4V* Patient: Lala Davis MR#: [id number] [facility] Other XR knee RT 4V* : 1950 Acct:[id number] [facility] Other XR knee RT 4V* Age/Sex: 71 / M ADM Date: 01/27/22 [facility] Other XR knee RT 4V* Loc: [facility] Room: Type: REG CLI No [employer] Other XR knee RT 4V* Attending Dr: Calixto Smith II, MD [facility] Other XR knee RT 4V* Copies to: Calixto Smith MD [facility] Other XR knee RT 4V* Ordering Provider: Calixto Smith MD [facility] Other XR knee RT 4V* Date of Service: 01/27/22 [facility] Other XR knee RT 4V* XR/XR knee RT 4V*: Primary osteoarthritis of right knee [facility] Other XR knee RT 4V* ([id number]) XR/XR pelvis 1-2V: Primary osteoarthritis of right knee [facility] Other XR knee RT 4V* Single view of the pelvis plain film [facility] Other XR knee RT 4V* HISTORY:RIGHT knee pain. [employer] Other XR knee RT 4V* COMPARISON:None [facility] Other XR knee RT 4V* SI joints are maintained. [facility] Other XR knee RT 4V* No hip fracture or dislocation is present. [facility] Other XR knee RT 4V* No acute bony findings identified. [facility] Other XR knee RT 4V* No focal soft tissue abnormality seen. [facility] Other XR knee RT 4V* LEFT hip joint space is narrowed. RIGHT hip joint space unremarkable.. Articular surface of the [facility] Other XR knee RT 4V* hips preserved. Chronic changes involving the proximal femur on the LEFT noted. [facility] Other XR knee RT 4V* XR/XR pelvis 1-2V [facility] Other XR knee RT 4V* IMPRESSION:LEFT hip degeneration. Chronic changes involving the proximal portion of the LEFT femoral [facility] Other XR knee RT 4V* shaft. Unremarkable RIGHT hip. N [employer] Other XR knee RT 4V* 4 views, RIGHT knee [facility] Other XR knee RT 4V* Advanced medial compartment degeneration. Tricompartmental marginal spurring. No patellar [employer] Other XR knee RT 4V* subluxation with sunrise view. No acute bony findings. Mild degenerative subluxation. No soft tissue [facility] Other XR knee RT 4V* abnormality. No joint effusion. [facility] Other XR knee RT 4V* IMPRESSION: Advanced medial compartment knee degeneration. [employer] Other XR knee RT 4V* Impression dictated by: Magnus Motley M.D.01/27/2022 12:45 PM [employer] Other XR knee RT 4V* Dictation Location: [place] [address] [facility] Other XR knee RT 4V* Transcribed By: ROBERTO 01/27/22 [facility] Other XR knee RT 4V* Dictated By: Magnus Motley DO 01/27/22 [facility] Other XR knee RT 4V* Signed By: [facility] Other XR knee RT 4V* 01/27/[address] CARDIAC SCORINGon 04-0 CT CARDIAC SCORING Patient Name: LALA DAVIS STUDY: CT CARDIAC SCORING; 11/10/2018 3:11 pm INDICATION: Hyperlipidemia, unspecified. COMPARISON: None. ACCESSION NUMBER(S): [id number] ORDERING CLINICIAN: LANDRY PAIGE TECHNIQUE: Using prospective [...] calcuate using link below [email or web address] spx [place]. JACC 2014 (http://dx.doi.org/10.1016/j.j acc.2015.08.035) Electronically signed by: ONEL PIPER MD [facility] PROGRESSon 11-18-2017 PROGRESS HNO ID: [id number] thor: Catracho Soni: (none)Author Type: PhysicianType: Progress [...] Dr. King in January then back to [facility] reviewed history and examined the patient. I agree with findings,impressions, and plan.The nature of the patient's eye disease, its relationship to systemichealth, its genetic components, and its prognosis have been explained tothe patient/family.The treatment options/risks/benefits have been discussed.Questions answered.Catracho Quesada MD [facility] PROGRESSon 10-14-2017 PROGRESS HNO ID: [id number] thor: Catracho Soni: (none)Author Type: PhysicianType: Progress [...] options/risks/benefits have been discussed.Questions answered.Catracho Quesada MD [facility] PROGRESSon 09-16-2017 PROGRESS HNO ID: [id number] thor: Catracho Soni: (none)Author Type: PhysicianType: Progress [...] options/risks/benefits have been discussed.Questions answered.Catracho Quesada MD [facility] 06-17-2017 HOSP Office Visit OPHT (OPHTLN) LARS DAVIS ([id number]) 1950 MDate Time Provider Dsarmkeyxo72/10/17 2:15 PM CATRACHO QUESADA During your visit [...] discussed.Questions answered.Catracho Quesada MDReferring Provider: CATRACHO QUESADA [[id number]]Allergies As of Date: 06/17/2017 Noted Allergy ReactionCODEINE 10/12/2016 5 - IntoleranceDate Reviewed: 06/17/2017Reviewed by: Catracho Quesada - Fully AssessedReason for Visit: Cystoid Macular Edema Follow Up [6699]Visit Diagnoses:Recent subtotal retinal detachment of left eye [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 [H35.352]Order(s):DILATED FUNDUS EXAM [4562220] Order #: [id number]: 1 IOP MEASUREMENT [] Order #: [id number]: 1 OCT MACULA CIRRUS OS (LEFT EYE) [21291210] Order #: [id number]: 1 DILATED FUNDUS EXAM [] Order #: [id number]: 1 FUTURE IOP MEASUREMENT [] Order #: [id number]: 1 FUTURE OCT MACULA CIRRUS OS (LEFT EYE) [21291210] Order #: [id number]: 1 FUTUREPrescriptions as of 06/17/2017 Sig: PREDNISOLONE [...] Catracho Quesada on 06/17/2017 2:52 PMEncounter Number: [id number] Status:Closed by SHIN PONCE, CATRACHO PHD on 06/17/17 [facility] PROGRESSon 06-17-2017 PROGRESS HNO ID: [id number] thor: Catracho Soni: (none)Author Type: PhysicianType: Progress [...] options/risks/benefits have been discussed.Questions answered.Catracho Quesada MD [facility] 05-20-2017 HOSP Office Visit OPHT (OPHTLN) LARS DAVIS ([id number]) 1950 MDate Time Provider Dszujfqghj08/13/17 9:45 AM CATRACHO QUESADA OPHGISELA During your visit today, we recorded the [...] discussed.Questions answered.Catracho Quesada MDReferring Provider: CATRACHO QUESADA [[id number]]Allergies As of Date: 05/20/2017 Noted Allergy ReactionCODEINE 10/12/2016 5 - IntoleranceDate Reviewed: 05/20/2017Reviewed by: Tova TenorioOpt-ADolly Barksdale - Fully AssessedReason for Visit: Cystoid Macular Edema Follow Up [3589]Visit Diagnoses:Recent subtotal retinal detachment of left eye [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 [H35.352]Order(s):DILATED FUNDUS EXAM [] Order #: [id number]: 1 IOP MEASUREMENT [] Order #: [id number]: 1 OCT MACULA CIRRUS OS (LEFT EYE) [21291210] Order #: [id number]: 1 prednisoLONE acetate (PRED FORTE, ECONOPRED PLUS) 1 % ophthalmic suspensionUse 1 Drop in the left eye three times daily.Disp: 1 BottleRfl: 2 ketorolac (ACULAR) 0.5 % ophthalmic solutionUse 1 Drop in the left eye three times daily.Disp: 1 BottleRfl: 2 DILATED FUNDUS EXAM [] Order #: [id number]: 1 FUTURE IOP MEASUREMENT [] Order #: [id number]: 1 FUTURE OCT MACULA CIRRUS OS (LEFT EYE) [21291210] Order #: [id number]: 1 FUTUREPrescriptions as of 05/20/2017 Sig: PREDNISOLONE [...] Catracho Quesada on 05/20/2017 10:23 AMEncounter Number: [id number] Status:Closed by SHIN PONCE, CATRACHO PHD on 05/20/17 [facility] PROGRESSon 05-20-2017 PROGRESS HNO ID: [id number] thor: Catracho QuesadaSer: (none)Author Type: PhysicianType: Progress NotesFiled: 05/20/2017 10:40 [...] options/risks/benefits have been discussed.Questions answered.Catracho Quesada MD [facility] HOSPon 04-15-2017 HOSP Office Visit OPHT (OPHTLN) LARS DAVIS ([id number]) 1950 MDate Time Provider Department04/15/17 10:15 AM [...] discussed.Questions answered.Catracho Quesada MDReferring Provider: CATRACHO QUESADA [[id number]]Allergies As of Date: 04/15/2017 Noted Allergy ReactionCODEINE 10/12/2016 5 - IntoleranceDate Reviewed: 04/15/2017Reviewed by: Catracho Quesada - Fully AssessedReason for Visit: Recent subtotal retinal detachment [Other] Cmt: Left EyePrimary Visit Diagnosis:Cystoid macular edema of left eye [H35.352] Other Visit Diagnosis:Recent subtotal retinal detachment of left eye [H33.052]Order(s):DILATED FUNDUS EXAM [] Order #: [id number]: 1 IOP MEASUREMENT [] Order #: [id number]: 1 OCT MACULA CIRRUS OS (LEFT EYE) [21291210] Order #: [id number]: 1 ketorolac (ACULAR) 0.5 % ophthalmic solutionUse 1 Drop in the left eye four times daily.Disp: 1 BottleRfl: 1 DILATED FUNDUS EXAM [] Order #: [id number]: 1 FUTURE IOP MEASUREMENT [] Order #: [id number]: 1 FUTURE OCT MACULA CIRRUS OS (LEFT EYE) [21291210] Order #: [id number]: 1 FUTUREPrescriptions as of 04/15/2017 Sig: GINSENG [...] Catracho Quesada on 04/15/2017 10:47 AMEncounter Number: [id number] Status:Closed by CATRACHO QUESADA MD PHD on 04/15/17 [facility] PROGRESSon 04-15-2017 PROGRESS HNO ID: [id number] thor: Catracho QuesadaService: (none)Author Type: PhysicianType: Progress NotesFiled: 04/15/2017 10:58 [...] options/risks/benefits have been discussed.Questions answered.Catracho Quesada MD [facility] HOSPon 03-18-2017 HOSP Office Visit OPHT (OPHTLN) LARS DAVIS ([id number]) 1950 MDate Time Provider Department03/18/17 10:45 AM [...] answered.Catracho Quesada MDReferring Provider: NOEMY VILLARREAL V [[id number]]Allergies As of Date: 03/18/2017 Noted Allergy ReactionCODEINE 10/12/2016 5 - IntoleranceDate Reviewed: 03/18/2017Reviewed by: Luisito Segundo (Oa) - Fully AssessedReason for Visit: Rhegmatogenous Retinal Detachment Follow Up [3420]Primary Visit Diagnosis:Recent subtotal retinal detachment of left eye [H33.052] Other Visit Diagnosis:PCO (posterior capsular opacification), left [H26.492]Order(s):DILATED FUNDUS EXAM [] Order #: [id number]: 1 FUTURE IOP MEASUREMENT [9533552] Order #: [id number]: 1 FUTURE DILATED FUNDUS EXAM [] Order #: [id number]: 1 IOP MEASUREMENT [5741852] Order #: [id number]: 1 DILATED FUNDUS EXAM [] Order #: [id number]: 1 FUTURE IOP MEASUREMENT [6528476] Order #: [id number]: 1 FUTURE OCT MACULA CIRRUS OS (LEFT EYE) [21291210] Order #: [id number]: 1 FUTUREPrescriptions as of 03/18/2017 Sig: PREDNISOLONE [...] Catracho Quesada on 03/18/2017 12:24 PMEncounter Number: [id number] Status:Closed by SHIN PONCE, CATRACHO PHD on 03/18/17 [facility] PROGRESSon 03-18-2017 PROGRESS HNO ID: [id number] thor: Catrcaho Soni: (none)Author Type: PhysicianType: Progress NotesFiled: 03/18/2017 [...] options/risks/benefits have been discussed.Questions answered.Catracho Quesada MD [facility] OBSOLETEon 03-12-2017 OBSOLETE Refill (OPHTMN) LARS DAVIS ([id number]) 1950 MDate Time Provider Department03/12/17 CALIXTO HANNAH (ROBYN) DWAYNE During your visit today, we recorded the [...] physician. Status:Closed by CALIXTO HANNAH on 03/12/17 [facility] OBSOLETEon 03-04-2017 OBSOLETE Refill (OPHTMN) LARS DAVIS ([id number]) 1950 MDate Time Provider Department03/04/17 NOEMY VILLARREAL [...] left eye daily at bedtime. Status:Closed by NOEMY VILLARREAL MD, V on 03/04/17 [facility] 02-25-2017 HOSP Office Visit OPHT (OPHTMN) [facility][id number][facility] 1950 [facility]/25/17 11:00 AM NOEMY VILLARREAL [...] to relieve yourpain, you need to call [phone] (if during nonbusiness hours ask to speakwith the bookkeeper receptionist him tech [phone]).-If you notice a sudden decrease in your vision or severe increase in pain,please call [phone] (if during nonbusiness hours ask to speak with the oncall him tech [phone]).-Please contact Dr. 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 -If you notice a sudden decrease in your vision or severe increase in pain, please call [phone] (if during nonbusiness hours ask to speak with the bookkeeper receptionist him tech [phone]). -Please contact Dr. Villarreal's office with any questions or concerns at [phone].Disposition: Return 03/18/17 with Catracho Quesada in [place].Follow-up and Disposition History RecordedAnnotated image of OPHT KEITH FUNDUS PERIPHERY OS last updated by Dylan Wilkins (Fel) on 02/25/2017 11:26 AMEncounter Number: [id number] Status:Closed by NOEMY VILLARREAL MD, V on 02/25/17 Normal [facility] PROGRESSon 02-25-2017 PROGRESS HNO ID: [id number] thor: Karishma Caputoice: (none)Author Type: PhysicianType: Progress NotesFiled: 02/25/2017 11:50 [...] with all of its relevantcomponents.Noemy Villarreal MD [facility] PROGRESSon 02-24-2017 PROGRESS HNO ID: [id number] thor: Mary Agrawal: (none)Author Type: PhysicianType: Progress NotesFiled: 02/24/2017 12:28 [...] I have seen and examined Lala Davis. Ialso have reviewed and agree with the assessment and plan as stated aboveand agree with all of its relevant components.Cole DARNELL MDly 2016 12:25 PM Normal [facility] 02-20-2017 HOSP Office Visit OPHT (OPHTMN) LARS DAVIS ([id number]) 1950 MDate Time Provider Department02/20/17 NOEMY VILLARREAL V OPHTMJanice During your visit today, we recorded the [...] 02/20/2017 10:53 AM Addendum02/20/2017Your instructions/restrictions until Dr. Vlilarreal sees you next are asfollows:-No heavy lifting-No [...] to relieve yourpain, you need to call [phone] (if during nonbusiness hours ask to speakwith the bookkeeper receptionist him tech [phone]).-If you notice a sudden decrease in your vision or severe increase in pain,please call [phone] (if during nonbusiness hours ask to speak with the oncall him tech [phone]).-Please contact Dr. Villarreal's office with any questions or concerns [phone].Allergies As of Date: 02/20/2017 Noted Allergy ReactionCODEINE 10/12/2016 5 - IntoleranceDate Reviewed: 02/19/2017Reviewed by: Yair Ko (Rn) HODAN Rudolph - Fully AssessedPrimary [...] relieve your pain, you need to call [phone] (if during nonbusiness hours ask to speak with the bookkeeper receptionist him tech [phone]). -If you notice a sudden decrease in your vision or severe increase in pain, please call [phone] (if during nonbusiness hours ask to speak with the bookkeeper receptionist him tech [phone]). -Please contact Dr. Villarreal's office with any questions or concerns at [phone].Follow-up and Disposition History RecordedAnnotated image of OPHT KEITH FUNDUS PERIPHERY OS last updated by Troy Kang on 02/20/2017 10:51 AMEncounter Number: [id number] Status:Closed by NOEMY VILLARREAL MD, V on 02/20/17 [facility] PROGRESSon 02-20-2017 PROGRESS HNO ID: [id number] thor: DENTON Caputoervice: (none)Author Type: PhysicianType: Progress NotesFiled: 02/20/2017 11:10 [...] all of its relevantcomponents. Normal [facility] ANES Teri 02-19-2017 ANES POST HNO ID: [id number] thor: Rashel Dodd: AnesthesiologyAuthor Type: AnesthesiologistType: Anesthesia PostOpFiled: 02/19/2017 6:12 PMNote Text:POST ANESTHESIA EVALUATION NOTESERVICE DATE: 02/19/2017SERVICE TIME: 14:15DOB: 1950Vitals: 02/19/1713Temp: 36.1 ?C (97 ?F) 36.6 ?C (97.9 ?F) 02/19/17135BP: 124/66 116/69 133/58 137/78 02/19/1713Pulse: 62 61 [...] 19, 2017 : 6:11 PM PAGER/CONTACT #: [phone] Normal [facility] BRIEF OP NOTon 02-19-2017 BRIEF OP NOT HNO ID: [id number] thor: Troy Dumas: OphthalmologyAuthor Type: PhysicianType: Brief Op NoteFiled: 02/19/2017 10:39 AMNote Text:BRIEF OPERATIVE / PROCEDURE NOTELOG ID: [id number]/Procedure Date: 02/19/2017Incision/Procedure Start Time:Incision Close/Procedure End Time:Surgeon(s)/Proceduralist(s) and Nutrition Technician(s):Surgeon(s) and Role: * Noemy Villarreal, Santy - Primary * Troy Kang - FellowNo Additional StaffProcedure(s): repair of retinal detachment left eye: pars planavitrectomy, scleral buckle, sf6 gas to the left eyeAnesthesia: Choice - Anesthesia ConsultFindings: retinal detachment left eyeEstimated Blood Loss: <5 mlsSpecimens: NoneComplications: NonePre-Op/Pre-Procedure Diagnosis: rhegmatogenous retinal detachment, lefteyePost-Op/Post-Procedure Diagnosis:rhegmatogenous retinal detachment, lefteyeSIGNATURE: Troy Kang MD PATIENT NAME: Lala Templeton: February 19, 2017 : 10:38 AM PAGER/CONTACT #: Normal [facility] OPERATIVE NOon 02-19-2017 OPERATIVE NO HNO ID: [id number] thor: Karishma Caputoice: OphthalmologyAuthor Type: PhysicianType: Operative ReportFiled: 02/19/2017 1:08 PMNote Text:[facility] [place] [address] [place] [facility] OPERATIVE REPORTLOG ID: [id number]/Procedure Date: 02/19/2017Incision/Procedure Start Time: 11:34 AMIncision Close/Procedure End Time: 1:03 PMNAME: Lala Vilchis [facility] #: [id number](s)/Proceduralist (s) and Nutrition Technician(s):Surgeon(s) and Role: * Noemy Villarreal, Santy - Primary * Troy Kang - FellowANESTHESIA: Monitored Anesthesia CareOPERATIONS: Pars plana vitrectomy, endolaser, air fluid exchange,and [id number], left eyePREOPERATIVE DIAGNOSIS: Rhegmatogenous retinal detachment , [...] no qualified residents were available, a skilled neurosurgical nurse practitioner wasemployed. I was present during the entire procedure and performed thesurgery by myself with assistance.Estimated Blood Loss: NoneSpecimens: NoneDrains: NoneComplications: NoneParticipation: The primary surgeon/proceduralist performed the procedurewith assistance.Noemy Villarreal MD02/19/2017 , 1:06 PM Normal [facility] HISTORY PHYSICALon HISTORY PHYSICAL HNO ID: [id number]: Aurelia Obregon) BeuryService: (none)Author Type: Physician AssistantType: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
[2024-01-17 11:20] LABS: Prostate Specific Antigen Dx 1.52 ng/mL (<=4.00)
== END 2024-01-17 09:25 | disposition home or self-care (01) ==
LOC: LAB 09:24
PROVIDERS: PCP Family Medicine; Visit Provider Family Medicine
DX: Z12.5 Encounter for screening for malignant neoplasm of prostate (principal)
CPT/HCPCS: 36415; 84153

== ENCOUNTER 2024-12-11 09:12 | Outpatient (OUT) | payer MEDICARE, BC, SELFPAY ==
[2024-12-11 10:25] LABS: Internal Control Within Normal Limits; Occult Blood Positive
[2024-12-11 10:39] LABS: Prostate Specific Antigen Dx 2.34 ng/mL (<=4.00)
== END 2024-12-11 09:13 | disposition home or self-care (01) ==
LOC: LAB 09:12
PROVIDERS: PCP Family Medicine; Visit Provider Family Medicine
DX: Z12.5 Encounter for screening for malignant neoplasm of prostate (principal); Z12.11 Encounter for screening for malignant neoplasm of colon
CPT/HCPCS: 36415; 84153; G0328